=== PATIENT | female | born 1945 | race Caucasian/White ===

== ENCOUNTER → 2016-07-26 | Outpatient (REF) | payer MEDICARE, BC | LOC: M LAB REF 12:28 | PROVIDERS: ATTEND Internal Medicine | DX: Z01.89 Encounter for other specified special examinations (principal) ==

== ENCOUNTER → 2016-11-24 | Outpatient (REF) | payer MEDICARE, BC | LOC: M LAB REF 15:33 | PROVIDERS: ATTEND Orthopaedic Surgery | DX: M67.442 Ganglion, left hand (principal) ==

== ENCOUNTER → 2019-03-13 | Outpatient (REF) | payer MEDICARE, BC ==
[2019-03-13 21:26] LABS: APPEARANCE, URINE CLOUDY (CLEAR); BACTERIA, URINE AUTO 2+ (NEGATIVE); BILIRUBIN, URINE AUTO NEGATIVE (NEGATIVE); BLOOD, URINE BLOOD NEGATIVE (NEGATIVE); COLOR, URINE YELLOW (YELLOW); GLUCOSE, URINE (UA) AUTO NEGATIVE (NEGATIVE); KETONE, URINE AUTO NEGATIVE (NEGATIVE); LEUKOCYTE ESTERASE, URINE AUTO 3+ (NEGATIVE); NITRITE, URINE AUTO NEGATIVE (NEGATIVE); PROTEIN, URINE AUTO NEGATIVE (NEGATIVE); RBC, URINE AUTO 7 /HPF (0-3); SPECIFIC GRAVITY URINE AUTO 1.021 (1.002-1.035); SQUAMOUS EPITHELIAL CELL UR AU 12 /HPF (0-6); UROBILINOGEN, URINE AUTO 0.2 mg/dL (0.0-2.0); WBC, URINE AUTO 127 /HPF (0-3)
== END ==
LOC: M LAB REF 11:59
PROVIDERS: ATTEND Physician Assistant Medical
DX: N39.0 Urinary tract infection, site not specified (principal)

== ENCOUNTER → 2019-08-03 | Outpatient (REF) | payer MEDICARE, BC ==
[2019-08-03 14:46] LABS: APPEARANCE, URINE HAZY (CLEAR); BACTERIA, URINE AUTO NEGATIVE (NEGATIVE); BILIRUBIN, URINE AUTO NEGATIVE (NEGATIVE); BLOOD, URINE BLOOD NEGATIVE (NEGATIVE); COLOR, URINE YELLOW (YELLOW); GLUCOSE, URINE (UA) AUTO NEGATIVE (NEGATIVE); KETONE, URINE AUTO NEGATIVE (NEGATIVE); LEUKOCYTE ESTERASE, URINE AUTO 3+ (NEGATIVE); NITRITE, URINE AUTO NEGATIVE (NEGATIVE); PROTEIN, URINE AUTO NEGATIVE (NEGATIVE); RBC, URINE AUTO 1 /HPF (0-3); SPECIFIC GRAVITY URINE AUTO 1.012 (1.002-1.035); SQUAMOUS EPITHELIAL CELL UR AU 5 /HPF (0-6); UROBILINOGEN, URINE AUTO 0.2 mg/dL (0.0-2.0); WBC, URINE AUTO 23 /HPF (0-3)
== END ==
LOC: M LAB REF 11:15
PROVIDERS: ATTEND Nurse Practitioner Family
DX: R30.0 Dysuria (principal)

== ENCOUNTER → 2020-09-27 | Outpatient (REF) | payer MEDICARE, BC ==
[2020-09-27 15:50] LABS: APPEARANCE, URINE CLEAR (CLEAR); BACTERIA, URINE AUTO NEGATIVE (NEGATIVE); BILIRUBIN, URINE AUTO NEGATIVE (NEGATIVE); BLOOD, URINE BLOOD NEGATIVE (NEGATIVE); COLOR, URINE YELLOW (YELLOW); GLUCOSE, URINE (UA) AUTO NEGATIVE (NEGATIVE); KETONE, URINE AUTO NEGATIVE (NEGATIVE); LEUKOCYTE ESTERASE, URINE AUTO 2+ (NEGATIVE); MUCUS, URINE SMALL (NEGATIVE); NITRITE, URINE AUTO NEGATIVE (NEGATIVE); PROTEIN, URINE AUTO NEGATIVE (NEGATIVE); RBC, URINE AUTO 1 /HPF (0-3); SPECIFIC GRAVITY URINE AUTO 1.005 (1.002-1.035); SQUAMOUS EPITHELIAL CELL UR AU 1 /HPF (0-6); UROBILINOGEN, URINE AUTO 0.2 mg/dL (0.0-2.0); WBC, URINE AUTO 6 /HPF (0-3)
== END ==
LOC: M LAB REF 15:02
PROVIDERS: ATTEND Physician Assistant Medical
DX: R30.0 Dysuria (principal)

== ENCOUNTER → 2020-12-16 | Outpatient (REF) | payer MEDICARE, BC | LOC: M LAB REF 15:50 | PROVIDERS: ATTEND Nurse Practitioner Adult Health | DX: N39.0 Urinary tract infection, site not specified (principal) ==

== ENCOUNTER → 2021-06-04 | Outpatient (CLI) | payer MEDICARE, BC ==
--- NOTE | 2021-06-04 11:49 | REPMRS ---
Patient History The patient states she has not had a clinical breast exam in over a year. Family history of unknown cancer at age 40 in brother, unknown cancer at age 50 or over in maternal uncle, unknown cancer at age 31 in daughter. Took hormonal contraceptives for 1 year. Took estrogen for 8 years. Patient states no breast complaints today. Patient has signed MRS History Sheet. Digital Woman Screen Mammo: June 04, 2021 - Exam #: [id number] Bilateral CC and MLO view(s) were taken. Technologist: Ijeoma Ramirez, Technologist Prior study comparison: May 27, 2019, bilateral digital mammo screening bilat, performed at [facility]. May 25, 2018, bilateral digital mammo screening bilat, performed at [facility]. May 12, 2014, bilateral bilat screen digital mammo, performed at [facility] ([facility]). May 03, 2013, bilateral bilat screen digital mammo, performed at [facility] ([facility]). FINDINGS: The breast tissue is heterogeneously dense. This may lower the sensitivity of mammography. Screening. Digital screening (2D) mammography was performed bilaterally in the CC and MLO projections. Additionally, breast tomosynthesis (3D mammography) was performed bilaterally in the CC and MLO projections. Todays exam was compared to the prior exam/exams. By history, the patient has no complaints of a palpable breast abnormality or other significant breast complaints. The Volpara volumetric breast density category is C, the breasts are heterogenously dense which may obscure small masses. The breasts are unchanged in size and shape. There are no enio-soft tissue densities or spiculated masses. There is no internal architectural distortion. There are no suspicious enio-calcific clusters. Skin thickening or nipple retraction is not present. IMPRESSION: BI-RADS Category 2- Benign Findings. There is no evidence of malignant alteration of the breasts. Followup examination recommended in one year. The lifetime Tyrer-Cuzick score is 2.4% This mammogram was read with the assistance of [employer],an FDA approved computer aided detection system for mammography. Due to the density of the breasts or Tyrer Cuzick score of 20% or greater, MRI/whole breast screening ultrasound is warranted. Negative x-ray reports should not delay surgical consultation if a dominant or clinically suspicious mass is present. Not all breast cancers can be identified by mammography. Therefore, we recommend that you continue to perform regular breast self-examination and physical examination and then promptly contact your physician of any concerns or changes. Adenosis and dense breasts may obscure an underlying neoplasm. No significant changes when compared with prior studies. Assessment: BI-RADS/ACR category 2 mammogram. Benign Findings. Recommendation Routine screening mammogram of both breasts in 1 year. Electronically Signed By: Apollo Gómez MD 06/04/21 [id number]
--- NOTE | 2021-06-07 14:53 | DEXAMM ---
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 COMPARISON: 08/18/2017 as well as other prior exams. TECHNIQUE: Bone density was measured using dual-energy x-ray absorptiometry (DEXA). FINDINGS: AP SPINE L1-L4 BMD 1.216 g/cm2 Young Adult T-Score 0.3 Age Matched Z-Score 2.1. LT FEMUR, TOTAL BMD 0.953 g/cm2 Young Adult T-Score -0.4 Age Matched Z-Score 1.4. LT NECK BMD 0.799 g/cm2 Young Adult T-Score -1.7 Age Matched Z-Score 0.3. RT FEMUR, TOTAL BMD 0.933 g/cm2 Young Adult T-Score -0.6 Age Matched Z-Score 1.2. RT NECK BMD 0.753 g/cm2 Young Adult T-Score -2.0 Age Matched Z-Score -0.1. IMPRESSION: There is normal bone density of the spine. There is low bone density of the left hip. There is low bone density of the right hip. The density of the spine has decreased 4.1% since the initial exam on 08/07/2000. The density of the spine increased 3.1% since most recent exam on 08/18/2017. The density of the left hip has decreased 3.0% since initial exam on 08/07/2000. The density of the left hip has increased 3.3% since most recent exam on 08/18/2017. The density of the right hip has decreased 8.7% since the initial exam on 08/07/2000. The density of the right hip has decreased 1.3% since the most recent exam on 08/18/2017. FOLLOW-UP: Recommendation for the next bone density exam: 2 years. <Electronically signed by Gonzalo Ac > 06/07/21 [id number]
== END ==
LOC: M WHC 08:57
PROVIDERS: ATTEND Internal Medicine
DX: Z12.31 Encounter for screening mammogram for malignant neoplasm of breast (principal); M85.851 Other specified disorders of bone density and structure, right thigh; M85.852 Other specified disorders of bone density and structure, left thigh; Z95.1 Presence of aortocoronary bypass graft; Z80.9 Family history of malignant neoplasm, unspecified

== ENCOUNTER → 2022-06-17 | Outpatient (CLI) | payer MEDICARE, BC | LOC: M WHC 09:02 | PROVIDERS: ATTEND Internal Medicine | DX: Z12.31 Encounter for screening mammogram for malignant neoplasm of breast (principal) ==

== ENCOUNTER → 2023-06-23 | Outpatient (CLI) | payer MEDICARE, BC | LOC: M WHC 09:32 | PROVIDERS: ATTEND Internal Medicine | DX: Z12.31 Encounter for screening mammogram for malignant neoplasm of breast (principal); R92.323 Mammographic fibroglandular density, bilateral breasts ==